=== PATIENT | male | born 1985 | race Caucasian/White ===

== ENCOUNTER 2018-01-23 05:02 | Emergency (ER) | payer BC ==
[~2018-01-23] VITALS: Ht 167.6 cm; Wt 97.5 kg
[2018-01-23 05:02] VITALS: BP 144/88
[~2018-01-23 05:02] MED LIST: FLAGYL500 MG PO; IBU-8800 MG PO; KEFLEX500 MG PO; LOMOTIL 0.025 M1 TAB PO; MOTRIN800 MG PO; NKHM; PRILOSEC20 M1; PRILOSEC40 M1 PO; VICODIN 5/500 505 MG PO; ZITHROMAX Z PA250 MG PO; Zofran4 MG PO
[2018-01-23] MEDS ORDERED: AUGMENTIN 875875 MG PO (05:33)
== END 2018-01-23 06:04 | disposition home or self-care (01) ==
LOC: ED 05:02
DX: H66.92 Otitis media, unspecified, left ear (principal); J32.9 Chronic sinusitis, unspecified; Z79.899 Other long term (current) drug therapy; Z98.890 Other specified postprocedural states

== ENCOUNTER 2021-01-04 02:40 | Emergency (ER) | payer OTHER ==
[~2021-01-04] VITALS: Ht 167.6 cm; Wt 97.5 kg
[~2021-01-04 02:40] MED LIST changes: +AUGMENTIN 875875 MG PO
[2021-01-04 02:49] VITALS: BP 146/97
[2021-01-04] MEDS ORDERED: AUGMENTIN 875875 MG PO (02:57)
== END 2021-01-04 03:04 | disposition home or self-care (01) ==
LOC: ED 02:40
DX: H66.92 Otitis media, unspecified, left ear (principal); Z79.899 Other long term (current) drug therapy